=== PATIENT | male | born 1955 | race Caucasian/White ===

== ENCOUNTER → 2016-12-17 | Outpatient (CLI) | payer BC ==
[~2016-12-17] MED LIST: ASPI81TA28 PO; IBUP-1050 PO
--- NOTE | 2016-12-17 10:01 | DIAGNOSTIC IMAGING REPORT ---
RIGHT ELBOW 3 VIEWS CLINICAL HISTORY: Right elbow pain and swelling. Recent fall. FINDINGS: 3 views of the right elbow are obtained. No prior studies are available for comparison at the time of dictation. The skeletal structures are well mineralized. No fracture is seen. The joint spaces appear preserved. There is an enthesophyte at the triceps insertion. Small enthesophytes also arise from the humeral epicondyles. There is no evidence of joint effusion. Dorsal soft tissue edema is noted. IMPRESSION: 1. Dorsal soft tissue swelling with no radiographic evidence of fracture. 2. Mild degenerative change as above. Electronically signed by: Edin Patel M.D. 12/17/2016 9:59 AM Dictated Date/Time: 12/17/2016 9:58 AM
== END | disposition home or self-care (01) ==
LOC: C.RADBC 09:40
PROVIDERS: ATTEND Family Medicine
DX: M25.521 Pain in right elbow (principal); M25.421 Effusion, right elbow; M79.9 Soft tissue disorder, unspecified

== ENCOUNTER → 2017-11-12 | Outpatient (CLI) | payer BC ==
--- NOTE | 2017-11-12 09:51 | DIAGNOSTIC IMAGING REPORT ---
RIGHT SHOULDER 3 VIEWS HISTORY: RIGHT SHOULDER PAIN COMPARISON: None. FINDINGS: No acute fracture dislocation within the right shoulder. Old, healed right clavicle fracture. The AC joint is well aligned. Cartilage spaces are maintained for age. Soft tissues are unremarkable. No radiopaque foreign bodies. IMPRESSION: 1. No acute process within the right shoulder. 2. Old, healed right clavicle fracture. Electronically signed by: Primo Nieto M.D. 11/12/2017 9:49 AM Dictated Date/Time: 11/12/2017 9:47 AM
== END | disposition home or self-care (01) ==
LOC: C.LABPVFM 09:30
PROVIDERS: ATTEND Family Medicine
DX: M25.511 Pain in right shoulder (principal); Z87.81 Personal history of (healed) traumatic fracture